=== PATIENT | female | born 1980 | race Hispanic/Latino ===

== ENCOUNTER 2019-08-18 00:12 | Inpatient (IN) | payer SELFPAY ==
[2019-08-18] MEDS ORDERED: SODIUM CHLORIDE 0.9% 1000 ML 1,000 ML ONE ×2 (01:05)
[2019-08-18] MEDS ORDERED: ACETAMINOPHEN 500 MG TAB ONE (01:06)
[2019-08-18] MEDS ORDERED: SODIUM CHLORIDE 0.9% 1000 ML IV SOLN IV ONE (01:07)
[2019-08-18] MEDS ORDERED: HYDROmorphone 1 MG/1 ML INJ IV ONE ×2 (01:07→04:12)
[2019-08-18] MEDS ORDERED: PIPERACIL/TAZOBACTA 4.5/NS 100 4.5 GM/100 ML VIAL IV ONE (01:11)
[2019-08-18 01:25] LABS: Hematocrit 35.6 % (30.3-42.9); Hemoglobin 12.3 gm/dl (10.1-14.3); Mean Corpuscular HGB Conc 35 % (30-34); Mean Corpuscular Volume 82 fl (79-97); Platelet Count 277 K/mm3 (140-440); Red Blood Count 4.36 M/mm3 (3.65-5.03); Red Cell Distribution Width 15.1 % (13.2-15.2)
[2019-08-18 01:29] LABS: Total Cells Counted 100
[2019-08-18 01:30] LABS: Band Neutrophils # (Manual) 0.3 K/mm3; Basophils % (Manual) 0 % (0.0-1.8); Eosinophils % (Manual) 0 % (0.0-4.3); Ovalocytes 1+; Platelet Estimate Consistent w Auto; Poikilocytosis 1+
[2019-08-18 01:45] LABS: Alanine Aminotransferase 13 units/L (7-56); Albumin 4.4 g/dL (3.9-5); BUN/Creatinine Ratio 18; Blood Urea Nitrogen 16 mg/dL (7-17); Hemolysis Index 3
--- NOTE | 2019-08-18 01:48 | XRay Report ---
CHEST 1 VIEW 08/18/2019 1:18 AM INDICATION / CLINICAL INFORMATION: fever. COMPARISON: 05/22/12 FINDINGS: SUPPORT DEVICES: None. HEART / MEDIASTINUM: No significant abnormality. LUNGS / PLEURA: No significant pulmonary or pleural abnormality. No pneumothorax. ADDITIONAL FINDINGS: No significant additional findings. IMPRESSION: 1. No acute findings. Signer Name: Anoop Cao MD Signed: 08/18/2019 2:43 AM Workstation Name: [id number]
[2019-08-18] MEDS ORDERED: PIPERACIL/TAZOBACTA 4.5/NS 100 4.5 GM/100 ML VIAL IV SCH (02:00)
--- NOTE | 2019-08-18 02:27 | Emergency Department Report ---
ED Abdominal Pain HPI - General Chief Complaint: Abdominal Pain Stated Complaint: ABD PAIN Source: patient Mode of arrival: Stretcher Limitations: No Limitations - History of Present Illness Initial Comments: Patient is a 39-year-old white female with a history of ulcerative colitis, anxiety and C. difficile who presents to the ED with complaint of acute onset persistent diffuse abdominal pain that is worse on the right flank for the last 2 months, nausea and vomiting and which got worse in the last 2 days. Patient states that she's not been able to void urine because she has not been able to eat anything due to persistent nausea and vomiting with the lack of appetite. Patient states that in the last 12 hours she also developed a headache, diffuse body aches and pains, intermittent chills and fever and has been taking [id number] Tylenol for the same with no relief. Patient denies low back pain, dysuria, urinary frequency and urgency, vaginal bleeding, vaginal discharge, diarrhea, chest pain, shortness of breath, syncope or seizures. MD Complaint: abdominal pain, other (nausea and vomiting;) -: Gradual, month(s) (2) Location: RUQ, R flank Radiation: none Migration to: no migration Severity: severe Severity scale (0 -10): 8 Quality: cramping, aching, sharp Consistency: intermittent Improves With: nothing Worsens With: nothing Associated Symptoms: denies other symptoms, nausea, vomiting, fever, chills, anorexia. denies: diarrhea, constipation, dysuria, hematemesis, hematochezia, melena, hematuria, syncope - Related Data LMP Date: 08/11/19 Allergies Allergy/AdvReac Type Severity Reaction Status Date / Time morphine Allergy Hives Verified 08/18/19 00:37 sulfamethoxazole Allergy Itching Verified 08/18/19 00:41 [From Bactrim] trimethoprim [From Bactrim] Allergy Itching Verified 08/18/19 00:41 ED Review of Systems ROS: Stated complaint: ABD PAIN Other details as noted in HPI Constitutional: chills, fever, malaise, weakness Eyes: denies: eye pain, eye discharge, vision change ENT: denies: ear pain, throat pain Respiratory: denies: cough, shortness of breath, wheezing Cardiovascular: denies: chest pain, palpitations Endocrine: no symptoms reported Gastrointestinal: abdominal pain, nausea, vomiting. denies: diarrhea Genitourinary: denies: urgency, dysuria, discharge Musculoskeletal: denies: back pain, joint swelling, arthralgia Skin: denies: rash, lesions Neurological: denies: headache, weakness, paresthesias Psychiatric: denies: anxiety, depression Hematological/Lymphatic: denies: easy bleeding, easy bruising ED Past Medical Hx - Past Medical History Previous Medical History?: Yes Hx Psychiatric Treatment: Yes (Anxiety) Additional medical history: Ulcerative Colitis. C-diff. Chronic Lymes Disease - Surgical History Past Surgical History?: Yes Hx Cholecystectomy: Yes - Social History Smoking Status: Never Smoker Substance Use Type: None ED Physical Exam - General Limitations: No Limitations General appearance: alert, in no apparent distress - Head Head exam: Present: atraumatic, normocephalic, normal inspection - Eye Eye exam: Present: normal appearance, PERRL, EOMI Pupils: Present: normal accommodation - ENT ENT exam: Present: normal exam, normal orophraynx, mucous membranes moist, TM's normal bilaterally, normal external ear exam - Neck Neck exam: Present: normal inspection, full ROM - Respiratory Respiratory exam: Present: normal lung sounds bilaterally. Absent: respiratory distress, wheezes, rales, rhonchi, chest wall tenderness, accessory muscle use, prolonged expiratory - Cardiovascular Cardiovascular Exam: Present: normal rhythm, tachycardia, normal heart sounds. Absent: systolic murmur, diastolic murmur, rubs, gallop - GI/Abdominal GI/Abdominal exam: Present: soft, tenderness (Right flank, RUQ area tenderness with guarding), guarding, normal bowel sounds. Absent: rebound, hyperactive bowel sounds, hypoactive bowel sounds, organomegaly - Extremities Exam Extremities exam: Present: normal inspection, full ROM, normal capillary refill - Back Exam Back exam: Present: normal inspection, full ROM. Absent: CVA tenderness (R), muscle spasm, paraspinal tenderness, vertebral tenderness - Neurological Exam Neurological exam: Present: alert, oriented X3, CN II-XII intact, normal gait, reflexes normal - Psychiatric Psychiatric exam: Present: normal affect, normal mood - Skin Skin exam: Present: warm, dry, intact, normal color. Absent: rash ED Course Vital Signs 08/18/19 08/18/19 08/18/19 00:21 01:50 EDT 01:24 EST Temperature 98.8 F 101 F H Pulse Rate 129 H 109 H Respiratory 18 22 20 Rate Blood Pressure 103/57 Blood Pressure 97/57 [Left] Blood Pressure [Right] O2 Sat by Pulse 99 98 Oximetry 08/18/19 08/18/19 01:48 EST 02:25 Temperature 100 F H Pulse Rate 107 H 94 H Respiratory 12 19 Rate Blood Pressure Blood Pressure 108/61 [Left] Blood Pressure 120/72 [Right] O2 Sat by Pulse 97 99 Oximetry - Reevaluation(s) Reevaluation #1: 08/18/19 02:34 This is a 39-year-old female who presented to the ED with persistent right flank pain, nausea and vomiting with fever and chills. In the ED, patient is alert and oriented 3 and is not in distress but appears ill. Patient is febrile, tachycardic in triage and appears generally weak. The code sepsis was called for the patient and more tests ordered including chest x-ray and abdomen pelvis CT scan with IV contrast. The patient was also treated for fever, nausea and vomiting, abdominal pain and also normal saline IV fluids per sepsis protocol. Patient's case was discussed with Dr. Chu the ED attending physician who agreed with the plan of care. Chest x-ray shows no acute cardiopulmonary abnormalities. Lab test results show leukocytosis of 17,000, hyperglycemia of 129 mg/dL and a Lactic acid level of 2.10. Abdomen pelvis CT scan with contrast shows mild ascending and transverse colitis. Patient case was discussed with the ED attending Physician Dr. Chu who agreed with plan to admit the patient. Patient case also discussed with the Hospitalist Physician invertebrate paleontologist Dr. Shaw who admitted the patient. 08/18/19 04:10 ED Medical Decision Making - Lab Data Result diagrams: 08/18/19 00:57 08/18/19 00:57 - Radiology Data Radiology results: report reviewed, image reviewed Chest x-ray shows no acute cardiopulmonary abnormalities or pneumonitis. Abdomen pelvis CT scan with contrast shows mild ascending and transverse colitis. - Medical Decision Making This is a 39-year-old female who presented to the ED with persistent right flank pain, nausea and vomiting with fever and chills. In the ED, patient is alert and oriented 3 and is not in distress but appears ill. Patient is febrile, tachycardic in triage and appears generally weak. The code sepsis was called for the patient and more tests ordered including chest x-ray and abdomen pelvis CT scan with IV contrast. The patient was also treated for fever, nausea and vomiting, abdominal pain and also normal saline IV fluids per sepsis protocol. Patient's case was discussed with Dr. Chu the ED attending physician who agreed with the plan of care. Chest x-ray shows no acute cardiopulmonary abnormalities. Lab test results show leukocytosis of 17,000, hyperglycemia of 129 mg/dL and a Lactic acid level of 2.10. Abdomen pelvis CT scan with contrast shows mild ascending and transverse colitis. Patient case was discussed with the ED attending Physician Dr. Chu who agreed with plan to admit the patient. Patient case also discussed with the Hospitalist Physician invertebrate paleontologist Dr. Shaw who admitted the patient. - Differential Diagnosis Abdominal pain; Colitis; UTI; Appendicitis; Pyelonephritis; Pneumonia Critical Care Time: Yes Critical care time in (mins) excluding proc time.: 45 Critical care attestation.: If time is entered above; I have spent that time in minutes in the direct care of this critically ill patient, excluding procedure time. Critical Care Time: 45 ED Disposition Clinical Impression: Acute colitis, Sepsis due to other etiology, Fever and chills Abdominal pain Qualifiers: Abdominal location: generalized Qualified Code(s): R10.84 - Generalized abdominal pain Disposition: DC-09 OP ADMIT IP TO THIS HOSP Is pt being admited?: Yes Does the pt Need Aspirin: Yes Condition: Stable Instructions: Abdominal Pain (ED) Referrals: LESLI ELLIS MD [Primary Care Provider] - 3-5 Days Time of Disposition: 02:43 Print Language: SUDANESE
[2019-08-18 02:44] LABS: Bilirubin,Urine NEG (Negative); Blood,Urine NEG (Negative); Color,Urine Yellow (Yellow); Mucus,Urine FEW /HPF; Protein,Urine <15 mg/dL mg/dL (Negative); Urobilinogen,Urine < 2.0 mg/dL (<2.0)
--- NOTE | 2019-08-18 03:59 | Cat Scan Report ---
CT ABDOMEN AND PELVIS WITH CONTRAST INDICATION / CLINICAL INFORMATION: MAIN: abdominal pain, NAUSEA, VOMITING, DIARRHEA. 100 ML OMNIPAQUE 300. TECHNIQUE: Axial CT images were obtained through the abdomen and pelvis after 100 mL Omnipaque [address] scans at this location are performed using CT dose reduction for ALARA by means of automated exposure control. COMPARISON: None available. FINDINGS: LOWER CHEST: No significant abnormality. LIVER: No significant abnormality. GALLBLADDER: Surgically absent. BILE DUCTS: No significant abnormality. PANCREAS: No significant abnormality. SPLEEN: No significant abnormality. ADRENALS: No significant abnormality. RIGHT KIDNEY and URETER: No significant abnormality. LEFT KIDNEY and URETER: No significant abnormality. STOMACH and SMALL BOWEL: No significant abnormality. COLON: Mild thickening and edema of the ascending and transverse colon characteristic of mild colitis . APPENDIX: No significant abnormality. PERITONEUM: No free fluid. No free air. No fluid collection. LYMPH NODES: No significant adenopathy. AORTA and ARTERIES: No significant abnormality. IVC and VEINS: No significant abnormality. URINARY BLADDER: No significant abnormality. REPRODUCTIVE ORGANS: No significant abnormality. ADDITIONAL FINDINGS: None. SKELETAL SYSTEM: Several small bone islands but no acute osseous abnormality. IMPRESSION: 1. Mild ascending and transverse colitis. No abscess or free air. Signer Name: Anoop Cao MD Signed: 08/18/2019 3:55 AM Workstation Name: [id number]
[2019-08-18] MEDS ORDERED: HYDROmorphone 1 MG/1 ML INJ ONE (04:10)
[2019-08-18] MEDS ORDERED: ONDANSETRON 4 MG/2 ML INJ ONE (04:11)
[2019-08-18] MEDS ORDERED: ONDANSETRON 4 MG/2 ML INJ IV ONE ×2 (04:13→05:07)
[2019-08-18] MEDS ORDERED: METOCLOPRAMIDE 10 MG/2 ML INJ ONE (05:14)
[2019-08-18] MEDS ORDERED: METOCLOPRAMIDE 10 MG/2 ML INJ IV ONE (05:14)
[2019-08-18] MEDS ORDERED: ONDANSETRON 4 MG/2 ML INJ IV PRN (06:00)
[2019-08-18] MEDS ORDERED: ACETAMINOPHEN 325 MG TAB PO PRN (06:00)
--- NOTE | 2019-08-18 07:32 | History and Physical Report ---
History of Present Illness Date of examination: 08/18/19 Date of admission: 08/18/19 06:47 Chief complaint: Abdominal pain. Nausea and vomiting. Fever History of present illness: Patient is a 39-year-old female with known history of hypothyroidism ,history of C. difficile in the past presenting to the emergency room today complaining of abdominal pain, associated nausea and vomiting fever. It has been ongoing for the past few days. She denies any diarrhea , no bright red blood per rectum, no headache or dizziness. Upon arrival in the emergency room she was quite tachycardic and also had a fever of about [address] abdomen was consistent with colitis. She had an elevated lactic acid of 2.2 and also a white count of 17. Past History Past Medical History: hypothyroidism, renal failure, other (History of C. difficile in the past) Past Surgical History: cholecystectomy, Other (History of kidney surgery in the past) Social history: no significant social history Family history: hypertension Medications and Allergies Allergies Allergy/AdvReac Type Severity Reaction Status Date / Time morphine Allergy Hives Verified 08/18/19 00:37 sulfamethoxazole Allergy Itching Verified 08/18/19 00:41 [From Bactrim] trimethoprim [From Bactrim] Allergy Itching Verified 08/18/19 00:41 Active Meds: Active Medications Acetaminophen (Tylenol) 650 mg PO Q4H PRN PRN Reason: Pain MILD(1-3)/Fever >100.5/CLARK Piperacillin Sod/Tazobactam Sod (Zosyn/Ns 4.5gm/100ml) 4.5 gm in 100 mls @ 200 mls/hr IV Q8H HUGO; Protocol Last Admin: 08/18/19 01:00 EDT Dose: 200 mls/hr Documented by: Sodium Chloride (Nacl 0.9% 1000 Ml) 1,000 mls @ 125 mls/hr IV DIRECT HUGO Levofloxacin/Dextrose (Levaquin 750mg/150ml) 750 mg in 150 mls @ 100 mls/hr IV Q24HR HUGO; Protocol Metronidazole (Flagyl 500 Mg/100 Ml) 500 mg in 100 mls @ 100 mls/hr IV Q8HR HUGO; Protocol Ondansetron HCl (Zofran) 4 mg IV Q8H PRN PRN Reason: Nausea And Vomiting Sodium Chloride (Sodium Chloride Flush Syringe 10 Ml) 10 ml IV BID HUGO Sodium Chloride (Sodium Chloride Flush Syringe 10 Ml) 10 ml IV PRN PRN PRN Reason: LINE FLUSH Review of Systems Constitutional: fever, chills, malaise Gastrointestinal: abdominal pain, nausea, vomiting Exam - Constitutional Vitals: Temp Pulse Resp BP Pulse Ox 98 F 105 H 20 99/67 100 08/18/19 05:23 08/18/19 05:23 08/18/19 05:23 08/18/19 05:23 08/18/19 05:23 General appearance: Present: mild distress - EENT Eyes: Present: PERRL, EOM intact ENT: clear oral mucosa - Neck Neck: Present: supple, normal ROM - Respiratory Respiratory: bilateral: CTA - Cardiovascular Rhythm: regular Heart Sounds: Present: S1 & S2 - Extremities Extremities: no ischemia, pulses intact Peripheral Pulses: within normal limits - Abdominal General gastrointestinal: Present: soft, tender, non-distended Localized gastrointestinal: tender: diffuse - Integumentary Integumentary: Present: clear, warm, dry - Musculoskeletal Musculoskeletal: strength equal bilaterally - Psychiatric Psychiatric: appropriate mood/affect, intact judgment & insight - Neurologic Neurologic: CNII-XII intact, moves all extremities Results - Labs CBC & Chem 7: 08/18/19 00:57 08/18/19 00:57 Labs: Abnormal lab results 08/18/19 08/18/19 08/18/19 Range/Units 00:57 00:57 01:18 EST WBC 17.0 H (4.5-11.0) K/mm3 MCHC 35 H (30-34) % Carbon Dioxide 19 L (22-30) mmol/L Glucose 129 H (65-100) mg/dL Lactic Acid 2.10 H* (0.7-2.0) mmol/L Assessment and Plan - Patient Problems (1) Acute colitis Current Visit: Yes Status: Acute Plan to address problem: Patient has been started on empiric IV antibiotics. She has been placed on IV Levaquin and Flagyl. She had his dose of Zosyn in the emergency room. She has a history of C. difficile in the past. (2) Sepsis due to other etiology Current Visit: Yes Status: Acute Plan to address problem: Sepsis probably secondary to the colitis. We will continue on IV fluid and also on empiric IV antibiotics
[2019-08-18] MEDS: metroNIDAZOLE/NS 500 MG/100 ML 500 MG/100 ML BAG IV SCH ×4 (10:39→22:34)
[2019-08-18] MEDS: HYDROmorphone 1 MG/1 ML INJ IV PRN ×3 (10:55→18:26)
[2019-08-18] MEDS ORDERED: SODIUM CHLORIDE 0.9% 1000 ML 1,000 ML IV SCH (11:00)
--- NOTE | 2019-08-18 11:57 | Event Note ---
Date: 08/18/19 Patient seen and examined. She reports diarrhea, 2 loose stool this am. She also reports hx of Lyme disease and since then has had generalized body pain although worse now with the diveriticulitis. Check stool for c.diff given hx obtain ID consult Adjust fluids and Pain control
[2019-08-18] MEDS: SODIUM CHLORIDE 0.9% 1000 ML 1,000 ML IV SCH ×2 (14:14→20:28)
--- NOTE | 2019-08-18 14:57 | Consultation ---
History of Present Illness - Reason for Consult Consult date: 08/18/19 c.difficile colitis, Lyme disease history Requesting physician: SP ALEXANDER - History of Present Illness The patient is a 39-year-old female with history of ulcerative colitis, anxiety, recently diagnosed with C. difficile colitis by [facility] and was placed on antibiotic. She came to the hospital emergency room on 08/18/2019 with complaints of lower abdominal pain as well as acute on chronic diarrhea for the last 2 months or so. She initially saw her PCP and was given Cipro + Flagyl and with persistent diarrhea, she then saw [facility] and was diagnosed with C.difficile. Due to persistent symptoms, she came to the hospital. Denies any blood in stools. Here, she also was noted to have a fever. Reports nausea, vomiting and ongoing diarrhea. Was empirically started on levofloxacin and Flagyl. Infectious diseases was consulted for antibiotic recommendations. Patient gives a history of Lyme disease that was apparently diagnosed by a group that specializes in treatment of Lyme disease. She was apparently told that she acquired Lyme disease in her 20s and has chronic Lyme. She has been treated in the past with about 2 months of doxycycline. She was also diagnosed with so- called "Mycoplasma pneumoniae infection". She reports diffuse bodyaches. Review of Systems: General: fever HEENT: no new visual disturbance Respiratory: No cough, sputum, hemoptysis or shortness of breath Cardiovascular: No chest pain, syncope Gastrointestinal: Nausea, vomiting, diarrhea + Genitourinary: No dysuria or hematuria Musculoskeletal: diffuse bodyaches. Neurologic: No headaches, seizures Hematologic: No easy bruising or bleeding Endocrine: No night sweats or acute weight loss Skin: negative for rash, jaundice Psychiatric: No suicidal or homicidal ideation Past History Past Medical History: hypothyroidism, renal failure, other (History of C. difficile in the past) Past Surgical History: cholecystectomy, Other (History of kidney surgery in the past) Social history: no significant social history Family history: hypertension Medications and Allergies Allergies Allergy/AdvReac Type Severity Reaction Status Date / Time morphine Allergy Hives Verified 08/18/19 00:37 sulfamethoxazole Allergy Itching Verified 08/18/19 00:41 [From Bactrim] trimethoprim [From Bactrim] Allergy Itching Verified 08/18/19 00:41 Home Medications Medication Instructions Recorded Confirmed Last Taken Type Adult Probiotic 2 cap PO DAILY 08/18/19 08/18/19 Unknown History Cytomel 5 mg PO DAILY 08/18/19 08/18/19 Unknown History Synthroid 0.75 mcg PO QDAY 08/18/19 08/18/19 Unknown History Vit B12/Pyridoxine/Thiamine 1 cap PO DAILY 08/18/19 08/18/19 Unknown History Active Meds: Active Medications Acetaminophen (Tylenol) 650 mg PO Q4H PRN PRN Reason: Pain MILD(1-3)/Fever >100.5/CLARK Last Admin: 08/18/19 08:40 Dose: 650 mg Documented by: Acetaminophen/Hydrocodone Bitart ([place] 7.5/325) 1 each PO Q6H PRN PRN Reason: Pain, Moderate (4-6) Hydromorphone HCl (Dilaudid) 0.5 mg IV Q3H PRN PRN Reason: Pain , Severe (7-10) Last Admin: 08/18/19 14:13 Dose: 0.5 mg Documented by: Sodium Chloride (Nacl 0.9% 1000 Ml) 1,000 mls @ 125 mls/hr IV DIRECT HUGO Last Admin: 08/18/19 14:14 Dose: 125 mls/hr Documented by: Levofloxacin/Dextrose (Levaquin 750mg/150ml) 750 mg in 150 mls @ 100 mls/hr IV Q24HR HUGO; Protocol Last Admin: 08/18/19 10:39 Dose: 100 mls/hr Documented by: Metronidazole (Flagyl 500 Mg/100 Ml) 500 mg in 100 mls @ 100 mls/hr IV Q8HR HUGO; Protocol Last Admin: 08/18/19 10:39 Dose: 100 mls/hr Documented by: Sodium Chloride (Nacl 0.9% 1000 Ml) 1,000 mls @ 0 mls/hr IV ONCE HUGO Stop: 08/19/19 11:01 Last Admin: 08/18/19 10:37 Dose: 999 mls/hr Documented by: Ondansetron HCl (Zofran) 4 mg IV Q4H PRN PRN Reason: Nausea Sodium Chloride (Sodium Chloride Flush Syringe 10 Ml) 10 ml IV BID HUGO Last Admin: 08/18/19 14:14 Dose: 10 ml Documented by: Sodium Chloride (Sodium Chloride Flush Syringe 10 Ml) 10 ml IV PRN PRN PRN Reason: LINE FLUSH Physical Examination - Physical Exam Narrative exam: Physical Exam: Constitutional: Alert, cooperative. No acute distress Head, Ears, Nose: Normocephalic, atraumatic. External ears, nose normal Eyes: Conjunctivae/corneas clear. No icterus. No ptosis. Neck: Supple, no meningeal signs Oral: dentition fair, no thrush Cardiovascular: S1, S2 normal. Respiratory: Good air entry, clear to auscultation bilaterally GI: diffuse abdominal tenderness, bowel sounds present Musculoskeletal: No pedal edema, no cyanosis. Skin: No rash or abscess Hem/Lymphatic: No palpable cervical or supraclavicular nodes. No lymphangitis Psych: Mood ok. Affect normal Neurological: Awake, alert, oriented. No gross abnormality - Constitutional Vitals: Vital Signs Temp Pulse Resp BP Pulse Ox 100.6 F H 108 H 16 85/40 95 08/18/19 11:43 08/18/19 11:43 08/18/19 11:43 08/18/19 11:43 08/18/19 11:43 Temperature -Last 24 Hours Temperature 100.6 F Temperature 97.6 F Temperature 98 F Temperature 100 F Temperature 101 F Temperature 98.8 F Results - Labs CBC & Chem 7: 08/18/19 00:57 08/18/19 00:57 Labs: Abnormal lab results 08/18/19 08/18/19 08/18/19 Range/Units 00:57 00:57 01:18 EST WBC 17.0 H (4.5-11.0) K/mm3 MCHC 35 H (30-34) % Carbon Dioxide 19 L (22-30) mmol/L Glucose 129 H (65-100) mg/dL Lactic Acid 2.10 H* (0.7-2.0) mmol/L - Imaging and Cardiology CT scan - abdomen: report reviewed, image reviewed (colitis of ascending and transverse colon) Assessment and Plan Cultures: 08/18/2019 blood culture: In progress A/P: 39-year-old female with history of ulcerative colitis, anxiety, recently diagnosed with C. difficile colitis by [facility]: 1) Acute Clostridium difficile colitis: Would consider this severe given evidence of colitis on CT as well as leukocytosis. 2) H/O IBD: follows with [facility]. 3) h/o Chronic lyme disease: apparently diagnosed by a group that specializes in treatment of Lyme disease. She was apparently told that she acquired Lyme disease in her 20s and has chronic Lyme. She has been treated in the past with about 2 months of doxycycline. She was also diagnosed with so-called "Mycoplasma pneumoniae infection". There is no role for antibiotics now even if she truly had Lyme disease and it could potentially worsen her C.difficile. Recs: Discussed with RN to ensure stool sample is sent STAT (and not wait for 3 stools) Discontinued levofloxacin (would worsen C.diff) Continue IV Flagyl Added PO vancomycin 125 mg 4 times a day Monitor leukocytosis, fever and diarrhea d/w Dr. Alexander. Uma Zacarias MD, FACP [facility] ([facility] C: [phone] O: [phone] F: [phone]
[2019-08-18] MEDS: ONDANSETRON 4 MG/2 ML INJ IV PRN ×2 (15:37→20:28)
[2019-08-18] MEDS: VANCOMYCIN 250 MG/10 ML ORAL LIQD PO SCH ×2 (15:37→19:51)
[2019-08-18] MEDS: HYDROcodone/ACETAMINOPHEN 7.5-325MG TAB PO PRN (20:28)
[2019-08-19] MEDS: HYDROmorphone 1 MG/1 ML INJ IV PRN ×5 (01:10→21:06)
[2019-08-19] MEDS: ONDANSETRON 4 MG/2 ML INJ IV PRN ×2 (01:10→10:02)
[2019-08-19] MEDS: VANCOMYCIN 250 MG/10 ML ORAL LIQD PO SCH ×6 (01:14→23:31)
[2019-08-19] MEDS ORDERED: METOCLOPRAMIDE 10 MG/2 ML INJ IV ONE (04:29)
[2019-08-19] MEDS: metroNIDAZOLE/NS 500 MG/100 ML 500 MG/100 ML BAG IV SCH ×3 (04:49→21:14)
[2019-08-19] MEDS: SODIUM CHLORIDE 0.9% 1000 ML 1,000 ML IV SCH ×2 (04:50→23:31)
[2019-08-19 07:53] LABS: Basophils % (Auto) 0.5 % (0.0-1.8); Eosinophils % (Auto) 0.5 % (0.0-4.3); Hematocrit 28.2 % (30.3-42.9); Hemoglobin 9.5 gm/dl (10.1-14.3); Lymphocytes # (Auto) 0.6 K/mm3 (1.2-5.4); Lymphocytes % (Auto) 6.2 % (13.4-35.0); Mean Corpuscular HGB Conc 34 % (30-34); Mean Corpuscular Volume 83 fl (79-97); Monocytes # (Auto) 0.8 K/mm3 (0.0-0.8); Monocytes % (Auto) 7.9 % (0.0-7.3); Platelet Count 188 K/mm3 (140-440); Red Blood Count 3.39 M/mm3 (3.65-5.03); Red Cell Distribution Width 15.3 % (13.2-15.2)
[2019-08-19 08:04] LABS: Partial Thromboplastin Time 33.4 Sec. (24.2-36.6)
[2019-08-19 08:09] LABS: INR 1.27 (0.87-1.13)
[2019-08-19 08:19] LABS: BUN/Creatinine Ratio 14; Blood Urea Nitrogen 10 mg/dL (7-17); Calcium 7.2 mg/dL (8.4-10.2); Hemolysis Index 2
[2019-08-19] MEDS ORDERED: SODIUM BICARB 8.4% 50 MEQ/50 ML SYRINGE IV ONE (08:57)
[2019-08-19] MEDS: HYDROcodone/ACETAMINOPHEN 7.5-325MG TAB PO PRN (12:09)
[2019-08-19] MEDS: PROCHLORPERAZINE EDISYLATE 10 MG/2 ML VIAL IV PRN ×2 (14:04→21:11)
--- NOTE | 2019-08-19 15:22 | Progress Note ---
Assessment and Plan Cultures: 08/18/2019 blood culture: In progress A/P: 39-year-old female with history of ulcerative colitis, anxiety, recently diagnosed with C. difficile colitis by [facility]: 1) Acute Clostridium difficile colitis: Would consider this severe given evidence of colitis on CT as well as leukocytosis. 2) H/O IBD: follows with [facility]. 3) h/o Chronic lyme disease: apparently diagnosed by a group that specializes in treatment of Lyme disease. She was apparently told that she acquired Lyme disease in her 20s and has chronic Lyme. She has been treated in the past with about 2 months of doxycycline. She was also diagnosed with so-called "Mycoplasm a pneumoniae infection". There is no role for antibiotics now even if she truly had Lyme disease and it could potentially worsen her C.difficile. Recs: Continue IV Flagyl Continue PO vancomycin 125 mg 4 times a day Monitor leukocytosis, fever and diarrhea May Cruz MD [facility] M: [phone] O: [phone] F: [phone] Subjective Date of service: 08/19/19 Interval history: Improved leukocytosis. Improved volume of diarrhea, ongoing vomiting. Stools still liquid. Objective - Exam Narrative Exam: Constitutional: Alert, cooperative. No acute distress Head, Ears, Nose: Normocephalic, atraumatic. External ears, nose normal Eyes: Conjunctivae/corneas clear. No icterus. No ptosis. Neck: Supple, no meningeal signs Oral: dentition fair, no thrush Cardiovascular: S1, S2 normal. Respiratory: Good air entry, clear to auscultation bilaterally GI: Soft, non-tender; bowel sounds normal. No peritoneal signs. Musculoskeletal: No pedal edema, no cyanosis. Skin: No rash or abscess Hem/Lymphatic: No palpable cervical or supraclavicular nodes. No lymphangitis Psych: Mood ok. Affect normal Neurological: Awake, alert, oriented. No gross abnormality - Constitutional Vitals: Vital Signs Temp Pulse Resp BP Pulse Ox 98.8 F 86 18 108/68 96 08/19/19 05:54 08/19/19 05:54 08/19/19 05:54 08/19/19 05:54 08/19/19 05:54 Temperature -Last 24 Hours Temperature 98.8 F Temperature 97.9 F Temperature 100.1 F - Labs CBC & Chem 7: 08/19/19 06:32 08/19/19 06:32 Labs: Abnormal lab results 08/19/19 08/19/19 08/19/19 Range/Units 06:32 06:32 06:32 RBC 3.39 L (3.65-5.03) M/mm3 Hgb 9.5 L (10.1-14.3) gm/dl Hct 28.2 L D (30.3-42.9) % RDW 15.3 H (13.2-15.2) % Lymph % (Auto) 6.2 L (13.4-35.0) % [place] % (Auto) 7.9 H (0.0-7.3) % Lymph # 0.6 L (1.2-5.4) K/mm3 Seg Neutrophils % 84.9 H (40.0-70.0) % Seg Neutrophils # 8.2 H (1.8-7.7) K/mm3 PT 15.7 H (12.2-14.9) Sec. INR 1.27 H (0.87-1.13) Potassium 3.4 L (3.6-5.0) mmol/L Chloride 111.1 H (98-107) mmol/L Carbon Dioxide 17 L (22-30) mmol/L Calcium 7.2 L D (8.4-10.2) mg/dL
--- NOTE | 2019-08-19 17:11 | Progress Note ---
Assessment and Plan Assessment and plan: Patient is a 39-year-old female with known history of hypothyroidism ,history of C. difficile in the past presenting to the emergency room today complaining of abdominal pain, associated nausea and vomiting fever. It has been ongoing for the past few days. She denies any diarrhea , no bright red blood per rectum, no headache or dizziness. Upon arrival in the emergency room she was quite tachycardic and also had a fever of about [address] abdomen was consistent with colitis. She had an elevated lactic acid of 2.2 and also a white count of 17. Acute colitis Sepsis due to other etiology IBS Hx of Chronic Lyme disease hx of C,Diff- suspect C.diff colitis Plan Continue supportive care Pain and antiemetics control Await stool studies Abx per ID-vancomycin 125 mg 4 times a day AND Flagyl dvt/gi prophy Ok to discharge in 24-48 hrs once tolerating diet Plan discussed with family History Interval history: Patient seen and examined remains with generelized abodminal pain, lethargic, states pain 10/10. states current pain control not effective. Also requesting compazine as zofran not working also Hospitalist Physical - Constitutional Vitals: Temp Pulse Resp BP Pulse Ox 98.8 F 86 18 108/68 96 08/19/19 05:54 08/19/19 05:54 08/19/19 05:54 08/19/19 05:54 08/19/19 05:54 General appearance: Present: mild distress, other (lathergic) - EENT Eyes: Present: PERRL, EOM intact ENT: hearing intact, clear oral mucosa - Neck Neck: Present: supple, normal ROM - Respiratory Respiratory effort: normal Respiratory: bilateral: diminished - Cardiovascular Rhythm: regular Heart Sounds: Present: S1 & S2. Absent: systolic murmur, diastolic murmur - Extremities Extremities: no ischemia, pulses intact, pulses symmetrical, No edema, normal temperature, normal color, Full ROM Peripheral Pulses: within normal limits - Abdominal General gastrointestinal: soft, tender, non-distended, normal bowel sounds - Integumentary Integumentary: Present: clear, warm, dry - Psychiatric Psychiatric: appropriate mood/affect, intact judgment & insight, cooperative - Neurologic Neurologic: CNII-XII intact, moves all extremities - Allied Health Allied health notes reviewed: nursing Results - Labs CBC & Chem 7: 08/19/19 06:32 08/19/19 06:32 Labs: Laboratory Last Values WBC 9.6 K/mm3 (4.5-11.0) 08/19/19 06:32 RBC 3.39 M/mm3 (3.65-5.03) L 08/19/19 06:32 Hgb 9.5 gm/dl (10.1-14.3) L 08/19/19 06:32 Hct 28.2 % (30.3-42.9) L D 08/19/19 06:32 MCV 83 fl (79-97) 08/19/19 06:32 MCH 28 pg (28-32) 08/19/19 06:32 MCHC 34 % (30-34) 08/19/19 06:32 RDW 15.3 % (13.2-15.2) H 08/19/19 06:32 Plt Count 188 K/mm3 (140-440) 08/19/19 06:32 Lymph % (Auto) 6.2 % (13.4-35.0) L 08/19/19 06:32 [place] % (Auto) 7.9 % (0.0-7.3) H 08/19/19 06:32 Eos % (Auto) 0.5 % (0.0-4.3) 08/19/19 06:32 Baso % (Auto) 0.5 % (0.0-1.8) 08/19/19 06:32 Lymph # 0.6 K/mm3 (1.2-5.4) L 08/19/19 06:32 Brooke # 0.8 K/mm3 (0.0-0.8) 08/19/19 06:32 Eos # 0.0 K/mm3 (0.0-0.4) 08/19/19 06:32 Baso # 0.0 K/mm3 (0.0-0.1) 08/19/19 06:32 Seg Neutrophils % 84.9 % (40.0-70.0) H 08/19/19 06:32 Seg Neutrophils # 8.2 K/mm3 (1.8-7.7) H 08/19/19 06:32 PT 15.7 Sec. (12.2-14.9) H 08/19/19 06:32 INR 1.27 (0.87-1.13) H 08/19/19 06:32 APTT 33.4 Sec. (24.2-36.6) 08/19/19 06:32 Sodium 140 mmol/L (137-145) 08/19/19 06:32 Potassium 3.4 mmol/L (3.6-5.0) L 08/19/19 06:32 Chloride 111.1 mmol/L (98-107) H 08/19/19 06:32 Carbon Dioxide 17 mmol/L (22-30) L 08/19/19 06:32 Anion Gap 15 mmol/L 08/19/19 06:32 BUN 10 mg/dL (7-17) 08/19/19 06:32 Creatinine 0.7 mg/dL (0.7-1.2) 08/19/19 06:32 Estimated GFR > 60 ml/min 08/19/19 06:32 BUN/Creatinine Ratio 14 % 08/19/19 06:32 Glucose 97 mg/dL (65-100) 08/19/19 06:32 Lactic Acid 1.60 mmol/L (0.7-2.0) 08/18/19 04:47 Calcium 7.2 mg/dL (8.4-10.2) L D 08/19/19 06:32 Total Bilirubin 0.80 mg/dL (0.1-1.2) 08/18/19 00:57 AST 19 units/L (5-40) 08/18/19 00:57 ALT 13 units/L (7-56) 08/18/19 00:57 Alkaline Phosphatase 89 units/L (35-129) 08/18/19 00:57 Troponin T < 0.010 ng/mL (0.00-0.029) 08/18/19 01:18 EST Total Protein 7.2 g/dL (6.3-8.2) 08/18/19 00:57 Albumin 4.4 g/dL (3.9-5) 08/18/19 00:57 Albumin/Globulin Ratio 1.6 % 08/18/19 00:57 Lipase 32 units/L (13-60) 08/18/19 00:57 HCG, Qual Negative (Negative) 08/18/19 00:57 Urine Color Yellow (Yellow) 08/18/19 02:30 Urine Turbidity Clear (Clear) 08/18/19 02:30 Urine pH 7.0 (5.0-7.0) 08/18/19 02:30 Ur Specific [place] 1.028 (1.003-1.030) 08/18/19 02:30 Urine Protein <15 mg/dl mg/dL (Negative) 08/18/19 02:30 Urine Glucose (UA) Neg mg/dL (Negative) 08/18/19 02:30 Urine Ketones 20 mg/dL (Negative) 08/18/19 02:30 Urine Blood Neg (Negative) 08/18/19 02:30 Urine Nitrite Neg (Negative) 08/18/19 02:30 Urine Bilirubin Neg (Negative) 08/18/19 02:30 Urine Urobilinogen < 2.0 mg/dL (<2.0) 08/18/19 02:30 Ur Leukocyte Esterase Neg (Negative) 08/18/19 02:30 Urine WBC (Auto) 1.0 /HPF (0.0-6.0) 08/18/19 02:30 Urine RBC (Auto) 2.0 /HPF (0.0-6.0) 08/18/19 02:30 U Epithel Cells (Auto) 5.0 /HPF (0-13.0) 08/18/19 02:30 Urine Mucus Few /HPF 08/18/19 02:30 Active Medications - Current Medications Current Medications: Generic Name Dose Route Start Last Admin Trade Name Freq PRN Reason Stop Dose Admin Acetaminophen 650 mg 08/18/19 06:00 08/18/19 08:40 Tylenol PO 650 mg Q4H PRN Administration Pain MILD(1-3)/Fever >100.5/CLARK Hydromorphone HCl 1 mg 08/19/19 13:14 08/19/19 14:04 Dilaudid IV 1 mg Q3H PRN Administration Pain , Severe (7-10) Sodium Chloride 1,000 mls @ 125 mls/hr 08/18/19 06:00 08/19/19 04:50 Nacl 0.9% 1000 Ml IV 125 mls/hr DIRECT HUGO Administration Metronidazole 500 mg in 100 mls @ 100 mls/hr 08/18/19 07:00 08/19/19 04:49 Flagyl 500 Mg/100 Ml IV 100 mls/hr Q8HR HUGO Administration Protocol Oxycodone/Acetaminophen 1 tab 08/19/19 13:13 Percocet 5/325 PO Q6H PRN Pain, Moderate (4-6) Prochlorperazine Edisylate 5 mg 08/19/19 13:13 08/19/19 14:04 Compazine IV 5 mg Q6H PRN Administration Nausea And Vomiting Sodium Chloride 10 ml 08/18/19 10:00 08/19/19 10:04 Sodium Chloride Flush Syringe 10 Ml IV 10 ml BID HUGO Administration Sodium Chloride 10 ml 08/18/19 06:00 08/19/19 04:51 Sodium Chloride Flush Syringe 10 Ml IV 10 ml PRN PRN Administration LINE FLUSH Vancomycin HCl 125 mg 08/18/19 15:00 08/19/19 06:52 Vancomycin Po PO Not Given Q6HR HUGO
[2019-08-19] MEDS: oxyCODONE /ACETAMINOPHEN 5-325MG TAB PO PRN ×2 (17:15→23:36)
[2019-08-20] MEDS: HYDROmorphone 1 MG/1 ML INJ IV PRN ×3 (04:20→18:08)
[2019-08-20 05:14] LABS: Hematocrit 28.6 % (30.3-42.9); Hemoglobin 9.7 gm/dl (10.1-14.3); Mean Corpuscular HGB Conc 34 % (30-34); Mean Corpuscular Volume 81 fl (79-97); Platelet Count 207 K/mm3 (140-440); Red Blood Count 3.52 M/mm3 (3.65-5.03)
[2019-08-20 05:31] LABS: BUN/Creatinine Ratio 13; Blood Urea Nitrogen 8 mg/dL (7-17); Calcium 7.4 mg/dL (8.4-10.2); Hemolysis Index 5
[2019-08-20] MEDS: VANCOMYCIN 250 MG/10 ML ORAL LIQD PO SCH ×3 (06:44→18:07)
[2019-08-20] MEDS: metroNIDAZOLE/NS 500 MG/100 ML 500 MG/100 ML BAG IV SCH ×5 (06:45→22:23)
[2019-08-20] MEDS: oxyCODONE /ACETAMINOPHEN 5-325MG TAB PO PRN ×3 (07:53→22:23)
[2019-08-20] MEDS: PROCHLORPERAZINE EDISYLATE 10 MG/2 ML VIAL IV PRN ×3 (07:53→19:00)
[2019-08-20] MEDS: POTASSIUM CHLORIDE 20 MEQ PACKET PO SCH ×2 (07:54→13:56)
[2019-08-20] MEDS: SODIUM CHLORIDE 0.9% 1000 ML 1,000 ML IV SCH ×2 (10:05→19:07)
--- NOTE | 2019-08-20 11:07 | Progress Note ---
Assessment and Plan Assessment and plan: Patient is a 39-year-old female with known history of hypothyroidism ,history of C. difficile in the past presenting to the emergency room today complaining of abdominal pain, associated nausea and vomiting fever. It has been ongoing for the past few days. no bright red blood per rectum, no headache or dizziness. Upon arrival in the emergency room she was quite tachycardic and also had a fever of about [address] abdomen was consistent with colitis. She had an elevated lactic acid of 2.2 and also a white count of 17. Acute colitis Sepsis due to other etiology IBS Hx of Chronic Lyme disease hx of C,Diff- suspect C.diff colitis -,Cdiff PCR ordered, still not sent yet. I discussed with Nurse. Plan Continue supportive care Pain and antiemetics control Await stool studies Abx per ID-vancomycin 125 mg 4 times a day AND Flagyl dvt/gi prophy Plan discussed with patient and at bedside History Interval history: Abdominal pain Nausea Hospitalist Physical - Physical exam Narrative exam: Gen: Not in acute distress, lying in bed,obese HEENT: Normocephalic, atraumatic Neck: supple, no JVD Heart: S1 and S2 reg, no murmurs, rubs or gallop Lungs: Clear to auscultation, no rhonchi, no wheeze Abd: soft, mild tender, no rebound tenderness, non distended, normal BS, Ext: No edema, no clubbing, no cyanosis Neuro: Awake, alert, oriented X 3, no focal neurological signs - Constitutional Vitals: Temp Pulse Resp BP Pulse Ox 98.5 F 68 17 111/66 97 08/19/19 23:26 08/19/19 23:26 08/20/19 04:50 08/19/19 23:26 08/19/19 23:26 General appearance: Present: mild distress, other (lathergic) Results - Labs CBC & Chem 7: 08/20/19 04:17 08/20/19 04:17 Labs: Laboratory Last Values WBC 7.5 K/mm3 (4.5-11.0) 08/20/19 04:17 RBC 3.52 M/mm3 (3.65-5.03) L 08/20/19 04:17 Hgb 9.7 gm/dl (10.1-14.3) L 08/20/19 04:17 Hct 28.6 % (30.3-42.9) L 08/20/19 04:17 MCV 81 fl (79-97) 08/20/19 04:17 MCH 28 pg (28-32) 08/20/19 04:17 MCHC 34 % (30-34) 08/20/19 04:17 RDW 15.0 % (13.2-15.2) 08/20/19 04:17 Plt Count 207 K/mm3 (140-440) 08/20/19 04:17 Lymph % (Auto) 6.2 % (13.4-35.0) L 08/19/19 06:32 [place] % (Auto) 7.9 % (0.0-7.3) H 08/19/19 06:32 Eos % (Auto) 0.5 % (0.0-4.3) 08/19/19 06:32 Baso % (Auto) 0.5 % (0.0-1.8) 08/19/19 06:32 Lymph # 0.6 K/mm3 (1.2-5.4) L 08/19/19 06:32 [place] # 0.8 K/mm3 (0.0-0.8) 08/19/19 06:32 Eos # 0.0 K/mm3 (0.0-0.4) 08/19/19 06:32 Baso # 0.0 K/mm3 (0.0-0.1) 08/19/19 06:32 Seg Neutrophils % 84.9 % (40.0-70.0) H 08/19/19 06:32 Seg Neutrophils # 8.2 K/mm3 (1.8-7.7) H 08/19/19 06:32 PT 15.7 Sec. (12.2-14.9) H 08/19/19 06:32 INR 1.27 (0.87-1.13) H 08/19/19 06:32 APTT 33.4 Sec. (24.2-36.6) 08/19/19 06:32 Sodium 140 mmol/L (137-145) 08/20/19 04:17 Potassium 3.0 mmol/L (3.6-5.0) L 08/20/19 04:17 Chloride 109.1 mmol/L (98-107) H 08/20/19 04:17 Carbon Dioxide 19 mmol/L (22-30) L 08/20/19 04:17 Anion Gap 15 mmol/L 08/20/19 04:17 BUN 8 mg/dL (7-17) 08/20/19 04:17 Creatinine 0.6 mg/dL (0.7-1.2) L 08/20/19 04:17 Estimated GFR > 60 ml/min 08/20/19 04:17 BUN/Creatinine Ratio 13 % 08/20/19 04:17 Glucose 82 mg/dL (65-100) 08/20/19 04:17 Lactic Acid 1.60 mmol/L (0.7-2.0) 08/18/19 04:47 Calcium 7.4 mg/dL (8.4-10.2) L 08/20/19 04:17 Total Bilirubin 0.80 mg/dL (0.1-1.2) 08/18/19 00:57 AST 19 units/L (5-40) 08/18/19 00:57 ALT 13 units/L (7-56) 08/18/19 00:57 Alkaline Phosphatase 89 units/L (35-129) 08/18/19 00:57 Troponin T < 0.010 ng/mL (0.00-0.029) 08/18/19 01:18 EST Total Protein 7.2 g/dL (6.3-8.2) 08/18/19 00:57 Albumin 4.4 g/dL (3.9-5) 08/18/19 00:57 Albumin/Globulin Ratio 1.6 % 08/18/19 00:57 Lipase 32 units/L (13-60) 08/18/19 00:57 HCG, Qual Negative (Negative) 08/18/19 00:57 Urine Color Yellow (Yellow) 08/18/19 02:30 Urine Turbidity Clear (Clear) 08/18/19 02:30 Urine pH 7.0 (5.0-7.0) 08/18/19 02:30 Ur Specific [place] 1.028 (1.003-1.030) 08/18/19 02:30 Urine Protein <15 mg/dl mg/dL (Negative) 08/18/19 02:30 Urine Glucose (UA) Neg mg/dL (Negative) 08/18/19 02:30 Urine Ketones 20 mg/dL (Negative) 08/18/19 02:30 Urine Blood Neg (Negative) 08/18/19 02:30 Urine Nitrite Neg (Negative) 08/18/19 02:30 Urine Bilirubin Neg (Negative) 08/18/19 02:30 Urine Urobilinogen < 2.0 mg/dL (<2.0) 08/18/19 02:30 Ur Leukocyte Esterase Neg (Negative) 08/18/19 02:30 Urine WBC (Auto) 1.0 /HPF (0.0-6.0) 08/18/19 02:30 Urine RBC (Auto) 2.0 /HPF (0.0-6.0) 08/18/19 02:30 U Epithel Cells (Auto) 5.0 /HPF (0-13.0) 08/18/19 02:30 Urine Mucus Few /HPF 08/18/19 02:30 Active Medications - Current Medications Current Medications: Generic Name Dose Route Start Last Admin Trade Name Freq PRN Reason Stop Dose Admin Acetaminophen 650 mg 08/18/19 06:00 08/18/19 08:40 Tylenol PO 650 mg Q4H PRN Administration Pain MILD(1-3)/Fever >100.5/CLARK Hydromorphone HCl 1 mg 08/19/19 13:14 08/20/19 04:20 Dilaudid IV 1 mg Q3H PRN Administration Pain , Severe (7-10) Sodium Chloride 1,000 mls @ 125 mls/hr 08/18/19 06:00 08/20/19 10:05 Nacl 0.9% 1000 Ml IV 125 mls/hr DIRECT HUGO Administration Metronidazole 500 mg in 100 mls @ 100 mls/hr 08/18/19 07:00 08/20/19 06:47 Flagyl 500 Mg/100 Ml IV 100 mls/hr Q8HR HUGO Administration Protocol Oxycodone/Acetaminophen 1 tab 08/19/19 13:13 08/20/19 07:53 Percocet 5/325 PO 1 tab Q6H PRN Administration Pain, Moderate (4-6) Potassium Chloride 40 meq 08/20/19 08:00 08/20/19 07:54 Potassium Chloride PO 08/20/19 14:01 40 meq Q6H HUGO Administration Prochlorperazine Edisylate 5 mg 08/19/19 13:13 08/20/19 07:53 Compazine IV 5 mg Q6H PRN Administration Nausea And Vomiting Sodium Chloride 10 ml 08/18/19 10:00 08/20/19 10:07 Sodium Chloride Flush Syringe 10 Ml IV 10 ml BID HUGO Administration Sodium Chloride 10 ml 08/18/19 06:00 08/19/19 04:51 Sodium Chloride Flush Syringe 10 Ml IV 10 ml PRN PRN Administration LINE FLUSH Vancomycin HCl 125 mg 08/18/19 15:00 08/20/19 06:44 Vancomycin Po PO 125 mg Q6HR HUGO Administration
[2019-08-20] MEDS ORDERED: PYRIDOXINE PO SCH (11:30)
[2019-08-20] MEDS ORDERED: [UNRECOGNIZED DRUG - OTHER] PO SCH (11:30)
[2019-08-20] MEDS ORDERED: VIT B12 PO SCH (11:30)
[2019-08-20] MEDS ORDERED: LEVOTHYROXINE PO SCH (11:30)
[2019-08-20] MEDS ORDERED: CYTOMEL PO SCH (11:30)
[2019-08-20] MEDS ORDERED: THIAMINE PO SCH (11:30)
[2019-08-20] MEDS: LEVOTHYROXINE 75 MCG TAB PO SCH (13:44)
[2019-08-20] MEDS: B COMPLEX W/VITAMIN C TAB PO SCH (13:52)
[2019-08-20] MEDS: LACTOBACILLUS RHAMNOSUS GG 1 EACH CAP PO SCH (13:53)
--- NOTE | 2019-08-20 14:17 | Progress Note ---
Assessment and Plan Cultures: 08/18/2019 blood culture: In progress A/P: 39-year-old female with history of ulcerative colitis, anxiety, recently diagnosed with C. difficile colitis by [facility]: 1) Acute Clostridium difficile colitis: Would consider this severe given evidence of colitis on CT as well as leukocytosis. 2) H/O IBD: follows with [facility]. 3) h/o Chronic lyme disease: apparently diagnosed by a group that specializes in treatment of Lyme disease. She was apparently told that she acquired Lyme disease in her 20s and has chronic Lyme. She has been treated in the past with about 2 months of doxycycline. She was also diagnosed with so-called "Mycoplasm a pneumoniae infection". There is no role for antibiotics now even if she truly had Lyme disease and it could potentially worsen her C.difficile. Recs: Continue IV Flagyl - ok to stop when diarrhea/vomiting improved Continue PO vancomycin 125 mg 4 times a day Monitor leukocytosis, fever and diarrhea Expect a 10 day course of therapy. May Cruz MD [facility] M: [phone] O: [phone] F: [phone] Subjective Date of service: 08/20/19 Interval history: Improved leukocytosis. Improved volume of diarrhea, ongoing vomiting. Stools still liquid. Objective - Exam Narrative Exam: Constitutional: Alert, cooperative. No acute distress Head, Ears, Nose: Normocephalic, atraumatic. External ears, nose normal Eyes: Conjunctivae/corneas clear. No icterus. No ptosis. Neck: Supple, no meningeal signs Oral: dentition fair, no thrush Cardiovascular: S1, S2 normal. Respiratory: Good air entry, clear to auscultation bilaterally GI: Soft, non-tender; bowel sounds normal. No peritoneal signs. Musculoskeletal: No pedal edema, no cyanosis. Skin: No rash or abscess Hem/Lymphatic: No palpable cervical or supraclavicular nodes. No lymphangitis Psych: Mood ok. Affect normal Neurological: Awake, alert, oriented. No gross abnormality - Constitutional Vitals: Vital Signs Temp Pulse Resp BP Pulse Ox 98.5 F 68 17 111/66 97 08/19/19 23:26 08/19/19 23:26 08/20/19 04:50 08/19/19 23:26 08/19/19 23:26 Temperature -Last 24 Hours Temperature 98.5 F Temperature 98.1 F - Labs CBC & Chem 7: 08/20/19 04:17 08/20/19 04:17 Labs: Abnormal lab results 08/20/19 08/20/19 Range/Units 04:17 04:17 RBC 3.52 L (3.65-5.03) M/mm3 Hgb 9.7 L (10.1-14.3) gm/dl Hct 28.6 L (30.3-42.9) % Potassium 3.0 L (3.6-5.0) mmol/L Chloride 109.1 H (98-107) mmol/L Carbon Dioxide 19 L (22-30) mmol/L Creatinine 0.6 L (0.7-1.2) mg/dL Calcium 7.4 L (8.4-10.2) mg/dL
[2019-08-21] MEDS: VANCOMYCIN 250 MG/10 ML ORAL LIQD PO SCH ×4 (00:34→17:54)
[2019-08-21] MEDS: PROCHLORPERAZINE EDISYLATE 10 MG/2 ML VIAL IV PRN ×4 (01:09→17:54)
[2019-08-21] MEDS: HYDROmorphone 1 MG/1 ML INJ IV PRN ×7 (01:09→22:20)
[2019-08-21] MEDS: metroNIDAZOLE/NS 500 MG/100 ML 500 MG/100 ML BAG IV SCH ×3 (05:19→22:20)
[2019-08-21] MEDS: LEVOTHYROXINE 75 MCG TAB PO SCH (05:19)
[2019-08-21 06:34] LABS: Hematocrit 29.3 % (30.3-42.9); Hemoglobin 9.9 gm/dl (10.1-14.3); Mean Corpuscular HGB Conc 34 % (30-34); Mean Corpuscular Volume 81 fl (79-97); Platelet Count 228 K/mm3 (140-440); Red Cell Distribution Width 15.1 % (13.2-15.2)
[2019-08-21 07:01] LABS: BUN/Creatinine Ratio 5; Blood Urea Nitrogen 3 mg/dL (7-17); Calcium 7.5 mg/dL (8.4-10.2); Hemolysis Index 1
[2019-08-21] MEDS ORDERED: POTASSIUM CHLORIDE 20 MEQ PACKET PO SCH (09:00)
[2019-08-21] MEDS: LACTOBACILLUS RHAMNOSUS GG 1 EACH CAP PO SCH (09:03)
[2019-08-21] MEDS: B COMPLEX W/VITAMIN C TAB PO SCH (09:03)
[2019-08-21] MEDS: POTASSIUM CHLORIDE ER 20 MEQ TAB PO SCH ×2 (13:04→17:55)
[2019-08-21] MEDS: SODIUM CHLORIDE 0.9% 1000 ML 1,000 ML IV SCH (15:28)
--- NOTE | 2019-08-21 15:36 | Progress Note ---
Assessment and Plan Cultures: 08/18/2019 blood culture: In progress A/P: 39-year-old female with history of ulcerative colitis, anxiety, recently diagnosed with C. difficile colitis by [place] [facility]: 1) Acute Clostridium difficile colitis: Would consider this severe given evidence of colitis on CT as well as leukocytosis. 2) H/O IBD: follows with [facility]. 3) h/o Chronic lyme disease: apparently diagnosed by a group that specializes in treatment of Lyme disease. She was apparently told that she acquired Lyme disease in her 20s and has chronic Lyme. She has been treated in the past with about 2 months of doxycycline. She was also diagnosed with so-called "Mycoplasm a pneumoniae infection". There is no role for antibiotics now even if she truly had Lyme disease and it could potentially worsen her C.difficile. Recs: Continue IV Flagyl - ok to stop when diarrhea/vomiting improved Continue PO vancomycin 125 mg 4 times a day Monitor leukocytosis, fever and diarrhea Expect a 10 day course of therapy. Ok to discharge from ID perspective. Would discharge with PO vanco alone to complete the 10 days. May Cruz MD [facility] M: [phone] O: [phone] F: [phone] Subjective Date of service: 08/21/19 Interval history: Improved leukocytosis. Improved volume of diarrhea, ongoing vomiting. Stools still liquid. Objective - Exam Narrative Exam: Constitutional: Alert, cooperative. No acute distress Head, Ears, Nose: Normocephalic, atraumatic. External ears, nose normal Eyes: Conjunctivae/corneas clear. No icterus. No ptosis. Neck: Supple, no meningeal signs Oral: dentition fair, no thrush Cardiovascular: S1, S2 normal. Respiratory: Good air entry, clear to auscultation bilaterally GI: Soft, non-tender; bowel sounds normal. No peritoneal signs. Musculoskeletal: No pedal edema, no cyanosis. Skin: No rash or abscess Hem/Lymphatic: No palpable cervical or supraclavicular nodes. No lymphangitis Psych: Mood ok. Affect normal Neurological: Awake, alert, oriented. No gross abnormality - Constitutional Vitals: Vital Signs Temp Pulse Resp BP Pulse Ox 98.3 F 67 16 108/55 96 08/21/19 12:29 08/21/19 12:29 08/21/19 12:29 08/21/19 12:29 08/21/19 12:29 Temperature -Last 24 Hours Temperature 98.3 F Temperature 98.8 F Temperature 98.2 F Temperature 98.3 F - Labs CBC & Chem 7: 08/21/19 05:44 08/21/19 05:44 Labs: Abnormal lab results 08/21/19 08/21/19 Range/Units 05:44 05:44 RBC 3.60 L (3.65-5.03) M/mm3 Hgb 9.9 L (10.1-14.3) gm/dl Hct 29.3 L (30.3-42.9) % Potassium 3.1 L (3.6-5.0) mmol/L Carbon Dioxide 19 L (22-30) mmol/L BUN 3 L (7-17) mg/dL Creatinine 0.6 L (0.7-1.2) mg/dL Calcium 7.5 L (8.4-10.2) mg/dL
--- NOTE | 2019-08-21 15:38 | Progress Note ---
Assessment and Plan Assessment and plan: Patient is a 39-year-old female with known history of hypothyroidism ,history of C. difficile in the past presenting to the emergency room today complaining of abdominal pain, associated nausea and vomiting fever. It has been ongoing for the past few days. no bright red blood per rectum, no headache or dizziness. Upon arrival in the emergency room she was quite tachycardic and also had a fever of about [address] abdomen was consistent with colitis. She had an elevated lactic acid of 2.2 and also a white count of 17. Acute colitis Sepsis IBS Hx of Chronic Lyme disease hx of C,Diff- leukocytosis,resolved Plan Continue supportive care Pain and antiemetics control Await stool studies Abx per ID-vancomycin 125 mg 4 times a day AND Flagyl dvt/gi prophy Plan discussed with patient and at bedside C diff PCR negative. I discussed with ID Physician Hopefully dc home tomorrow. History Interval history: Still c/o Abdominal pain Nausea Hospitalist Physical - Physical exam Narrative exam: Gen: Not in acute distress, lying in bed,obese HEENT: Normocephalic, atraumatic Neck: supple, no JVD Heart: S1 and S2 reg, no murmurs, rubs or gallop Lungs: Clear to auscultation, no rhonchi, no wheeze Abd: soft, mild tender, no rebound tenderness, non distended, normal BS, Ext: No edema, no clubbing, no cyanosis Neuro: Awake, alert, oriented X 3, no focal neurological signs - Constitutional Vitals: Temp Pulse Resp BP Pulse Ox 98.3 F 67 16 108/55 96 08/21/19 12:29 08/21/19 12:29 08/21/19 12:29 08/21/19 12:29 08/21/19 12:29 General appearance: Present: other (lathergic) Results - Labs CBC & Chem 7: 08/21/19 05:44 08/21/19 05:44 Labs: Laboratory Last Values WBC 5.8 K/mm3 (4.5-11.0) 08/21/19 05:44 RBC 3.60 M/mm3 (3.65-5.03) L 08/21/19 05:44 Hgb 9.9 gm/dl (10.1-14.3) L 08/21/19 05:44 Hct 29.3 % (30.3-42.9) L 08/21/19 05:44 MCV 81 fl (79-97) 08/21/19 05:44 MCH 28 pg (28-32) 08/21/19 05:44 MCHC 34 % (30-34) 08/21/19 05:44 RDW 15.1 % (13.2-15.2) 08/21/19 05:44 Plt Count 228 K/mm3 (140-440) 08/21/19 05:44 Lymph % (Auto) 6.2 % (13.4-35.0) L 08/19/19 06:32 Bowie % (Auto) 7.9 % (0.0-7.3) H 08/19/19 06:32 Eos % (Auto) 0.5 % (0.0-4.3) 08/19/19 06:32 Baso % (Auto) 0.5 % (0.0-1.8) 08/19/19 06:32 Lymph # 0.6 K/mm3 (1.2-5.4) L 08/19/19 06:32 Bowie # 0.8 K/mm3 (0.0-0.8) 08/19/19 06:32 Eos # 0.0 K/mm3 (0.0-0.4) 08/19/19 06:32 Baso # 0.0 K/mm3 (0.0-0.1) 08/19/19 06:32 Seg Neutrophils % 84.9 % (40.0-70.0) H 08/19/19 06:32 Seg Neutrophils # 8.2 K/mm3 (1.8-7.7) H 08/19/19 06:32 PT 15.7 Sec. (12.2-14.9) H 08/19/19 06:32 INR 1.27 (0.87-1.13) H 08/19/19 06:32 APTT 33.4 Sec. (24.2-36.6) 08/19/19 06:32 Sodium 142 mmol/L (137-145) 08/21/19 05:44 Potassium 3.1 mmol/L (3.6-5.0) L 08/21/19 05:44 Chloride 106.4 mmol/L (98-107) 08/21/19 05:44 Carbon Dioxide 19 mmol/L (22-30) L 08/21/19 05:44 Anion Gap 20 mmol/L 08/21/19 05:44 BUN 3 mg/dL (7-17) L 08/21/19 05:44 Creatinine 0.6 mg/dL (0.7-1.2) L 08/21/19 05:44 Estimated GFR > 60 ml/min 08/21/19 05:44 BUN/Creatinine Ratio 5 % 08/21/19 05:44 Glucose 78 mg/dL (65-100) 08/21/19 05:44 Lactic Acid 1.60 mmol/L (0.7-2.0) 08/18/19 04:47 Calcium 7.5 mg/dL (8.4-10.2) L 08/21/19 05:44 Total Bilirubin 0.80 mg/dL (0.1-1.2) 08/18/19 00:57 AST 19 units/L (5-40) 08/18/19 00:57 ALT 13 units/L (7-56) 08/18/19 00:57 Alkaline Phosphatase 89 units/L (35-129) 08/18/19 00:57 Troponin T < 0.010 ng/mL (0.00-0.029) 08/18/19 01:18 EST Total Protein 7.2 g/dL (6.3-8.2) 08/18/19 00:57 Albumin 4.4 g/dL (3.9-5) 08/18/19 00:57 Albumin/Globulin Ratio 1.6 % 08/18/19 00:57 Lipase 32 units/L (13-60) 08/18/19 00:57 HCG, Qual Negative (Negative) 08/18/19 00:57 Urine Color Yellow (Yellow) 08/18/19 02:30 Urine Turbidity Clear (Clear) 08/18/19 02:30 Urine pH 7.0 (5.0-7.0) 08/18/19 02:30 Ur Specific Roll 1.028 (1.003-1.030) 08/18/19 02:30 Urine Protein <15 mg/dl mg/dL (Negative) 08/18/19 02:30 Urine Glucose (UA) Neg mg/dL (Negative) 08/18/19 02:30 Urine Ketones 20 mg/dL (Negative) 08/18/19 02:30 Urine Blood Neg (Negative) 08/18/19 02:30 Urine Nitrite Neg (Negative) 08/18/19 02:30 Urine Bilirubin Neg (Negative) 08/18/19 02:30 Urine Urobilinogen < 2.0 mg/dL (<2.0) 08/18/19 02:30 Ur Leukocyte Esterase Neg (Negative) 08/18/19 02:30 Urine WBC (Auto) 1.0 /HPF (0.0-6.0) 08/18/19 02:30 Urine RBC (Auto) 2.0 /HPF (0.0-6.0) 08/18/19 02:30 U Epithel Cells (Auto) 5.0 /HPF (0-13.0) 08/18/19 02:30 Urine Mucus Few /HPF 08/18/19 02:30 Active Medications - Current Medications Current Medications: Generic Name Dose Route Start Last Admin Trade Name Freq PRN Reason Stop Dose Admin Acetaminophen 650 mg 08/18/19 06:00 08/18/19 08:40 Tylenol PO 650 mg Q4H PRN Administration Pain MILD(1-3)/Fever >100.5/CLARK Hydromorphone HCl 1 mg 08/19/19 13:14 08/21/19 15:23 Dilaudid IV 1 mg Q3H PRN Administration Pain , Severe (7-10) Sodium Chloride 1,000 mls @ 125 mls/hr 08/18/19 06:00 08/21/19 15:28 Nacl 0.9% 1000 Ml IV 125 mls/hr DIRECT HUGO Administration Metronidazole 500 mg in 100 mls @ 100 mls/hr 08/18/19 07:00 08/21/19 13:04 Flagyl 500 Mg/100 Ml IV 100 mls/hr Q8HR HUGO Administration Protocol Lactobacillus Rhamnosus 2 each 08/20/19 12:00 08/21/19 09:03 Culturelle PO 2 each DAILY HUGO Administration Levothyroxine Sodium 75 mcg 08/20/19 14:00 08/21/19 05:19 Synthroid PO 75 mcg DAILY@0600 HUGO Administration Miscellaneous Medication 5 mg 08/20/19 11:30 Cytomel PO DAILY HUGO Oxycodone/Acetaminophen 1 tab 08/19/19 13:13 08/20/19 22:23 Percocet 5/325 PO 1 tab Q6H PRN Administration Pain, Moderate (4-6) Potassium Chloride 40 meq 08/21/19 13:00 08/21/19 13:04 K-Dur PO 08/21/19 17:01 40 meq Q4H HUGO Administration Prochlorperazine Edisylate 5 mg 08/19/19 13:13 08/21/19 11:59 Compazine IV 5 mg Q6H PRN Administration Nausea And Vomiting Sodium Chloride 10 ml 08/18/19 10:00 08/21/19 09:06 Sodium Chloride Flush Syringe 10 Ml IV 10 ml BID HUGO Administration Sodium Chloride 10 ml 08/18/19 06:00 08/19/19 04:51 Sodium Chloride Flush Syringe 10 Ml IV 10 ml PRN PRN Administration LINE FLUSH Vancomycin HCl 125 mg 08/18/19 15:00 08/21/19 12:01 Vancomycin Po PO 08/28/19 06:01 125 mg Q6HR HUGO Administration Vitamin B Complex/Vitamin C 1 each 08/20/19 12:00 08/21/19 09:03 Allbee With C PO 1 each QDAY HUGO Administration
[2019-08-22] MEDS: PROCHLORPERAZINE EDISYLATE 10 MG/2 ML VIAL IV PRN ×3 (00:26→15:58)
[2019-08-22] MEDS: VANCOMYCIN 250 MG/10 ML ORAL LIQD PO SCH ×4 (00:26→13:25)
[2019-08-22] MEDS: HYDROmorphone 1 MG/1 ML INJ IV PRN ×2 (01:22→09:43)
[2019-08-22] MEDS: LEVOTHYROXINE 75 MCG TAB PO SCH (05:50)
[2019-08-22] MEDS: metroNIDAZOLE/NS 500 MG/100 ML 500 MG/100 ML BAG IV SCH ×2 (05:51→06:06)
[2019-08-22] MEDS: oxyCODONE /ACETAMINOPHEN 5-325MG TAB PO PRN ×2 (05:59→12:31)
[2019-08-22] MEDS ORDERED: FLUCONAZOLE 100 MG TAB PO STA (09:10)
[2019-08-22] MEDS: SODIUM CHLORIDE 0.9% 1000 ML 1,000 ML IV SCH (09:44)
[2019-08-22] MEDS: POTASSIUM CHLORIDE ER 20 MEQ TAB PO SCH ×2 (09:50→16:03)
[2019-08-22] MEDS: B COMPLEX W/VITAMIN C TAB PO SCH (09:51)
[2019-08-22] MEDS: LACTOBACILLUS RHAMNOSUS GG 1 EACH CAP PO SCH (09:51)
[2019-08-22] MEDS ORDERED: ENOXAPARIN 40 MG/0.4 ML INJ SUB-Q SCH (10:00)
--- NOTE | 2019-08-22 11:06 | Progress Note ---
Assessment and Plan Cultures: 08/18/2019 blood culture: In progress A/P: 39-year-old female with history of ulcerative colitis, anxiety, recently diagnosed with C. difficile colitis by [facility]: 1) Colitis: C diff PCR negative. Possibly related to history of UC vs other infectious cause 2) H/O IBD: follows with [facility]. 3) h/o Chronic lyme disease: apparently diagnosed by a group that specializes in treatment of Lyme disease. She was apparently told that she acquired Lyme disease in her 20s and has chronic Lyme. She has been treated in the past with about 2 months of doxycycline. She was also diagnosed with so-called "Mycoplasma pneumoniae infection". There is no role for antibiotics now even if she truly had Lyme disease and it could potentially worsen her C.difficile. Recs: Continue IV Flagyl; discharge on PO Flagyl to complete 7 total days of therapy. Stop PO vancomycin Monitor leukocytosis, fever and diarrhea Ok to discharge from ID perspective. Would discharge to complete 7 days of Flagyl and follow up wit GI. Ok to discontinue isolation May Cruz MD [facility] M: [phone] O: [phone] F: [phone] Subjective Date of service: 08/22/19 Interval history: Improved leukocytosis. Improved volume of diarrhea, ongoing vomiting. Ongoing abdominal pain. Objective - Exam Narrative Exam: Constitutional: Alert, cooperative. No acute distress Head, Ears, Nose: Normocephalic, atraumatic. External ears, nose normal Eyes: Conjunctivae/corneas clear. No icterus. No ptosis. Neck: Supple, no meningeal signs Oral: dentition fair, no thrush Cardiovascular: S1, S2 normal. Respiratory: Good air entry, clear to auscultation bilaterally GI: Soft, non-tender; bowel sounds normal. No peritoneal signs. Musculoskeletal: No pedal edema, no cyanosis. Skin: No rash or abscess Hem/Lymphatic: No palpable cervical or supraclavicular nodes. No lymphangitis Psych: Mood ok. Affect normal Neurological: Awake, alert, oriented. No gross abnormality - Constitutional Vitals: Vital Signs Temp Pulse Resp BP Pulse Ox 97.0 F L 66 17 107/64 96 08/22/19 06:53 08/22/19 07:10 08/22/19 06:59 08/22/19 07:10 08/22/19 06:53 Temperature -Last 24 Hours Temperature 97.0 F Temperature 98.1 F Temperature 98.2 F Temperature 98.3 F - Labs CBC & Chem 7: 08/21/19 05:44 08/22/19 06:54 Labs: Abnormal lab results 08/22/19 Range/Units 06:54 Potassium 3.2 L (3.6-5.0) mmol/L
--- NOTE | 2019-08-22 15:48 | Gastroenterology Consultation ---
<ZONIA RENTERIA - Last Filed: 08/22/19 15:59> History of Present Illness - Reason for Consult Consult date: 08/22/19 diarrhea, colitis Requesting physician: ELI KUMAR - History of Present Illness Patient is a 39 y/o female with PMH of hypothyroidism, anxiety, Lyme disease, chronic anemia, mycoplasma infection, and recent C-diff infection who presented to ED on 08/18/19 with c/o abdominal pain with N/V/D and fever. Upon admission, a bd CT showed mild ascending and transverse colitis to which she was admitted and has been treated per ID with antibiotics. GI has been consulted for persistent symptoms of diarrhea and nausea. Patient is previously known to our service. 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 She was also taking Excedrin frequently at that time, and was started on PPI with recommendation for an EGD to which she declined due to cost. Has not been compliant with taking PPI at home. States she previously was told by PCP that she may have ulcerative colitis due to previous episode of colitis, but has never underwent a colonoscopy for further evaluation. This afternoon, patient was resting in bed w/o acute distress. Reports some continued loose stool but now improved compared to initial onset and mild nausea but no vomiting. Tolerating small amounts of PO. Denies fever, CP, SOB, signs of bleeding, or constipation. Past History Past Medical History: hypothyroidism, renal failure, other (History of C. difficile in the past) Past Surgical History: cholecystectomy, Other (History of kidney surgery in the past) Social history: no significant social history Family history: hypertension Medications and Allergies Allergies Allergy/AdvReac Type Severity Reaction Status Date / Time morphine Allergy Hives Verified 08/18/19 00:37 sulfamethoxazole Allergy Itching Verified 08/18/19 00:41 [From Bactrim] trimethoprim [From Bactrim] Allergy Itching Verified 08/18/19 00:41 Home Medications Medication Instructions Recorded Confirmed Last Taken Type Adult Probiotic 2 cap PO DAILY 08/18/19 08/18/19 Unknown History Cytomel 5 mg PO DAILY 08/18/19 08/18/19 Unknown History Synthroid 0.75 mcg PO QDAY 08/18/19 08/18/19 Unknown History Vit B12/Pyridoxine/Thiamine 1 cap PO DAILY 08/18/19 08/18/19 Unknown History HYDROcodone/APAP 5-325 [[place] 1 each PO Q6HR PRN #12 tablet 08/22/19 Unknown Rx 5/325] Omeprazole 20 mg PO DAILY #30 capsule. 08/22/19 Unknown Rx Prochlorperazine [Compazine] 10 mg PO Q8HR PRN #20 tablet 08/22/19 Unknown Rx metroNIDAZOLE [Flagyl] 500 mg PO Q8H 4 Days #12 tab 08/22/19 Unknown Rx Active Meds: Active Medications Acetaminophen (Tylenol) 650 mg PO Q4H PRN PRN Reason: Pain MILD(1-3)/Fever >100.5/CLARK Last Admin: 08/18/19 08:40 Dose: 650 mg Documented by: Enoxaparin Sodium (Enoxaparin) 40 mg SUB-Q DAILY [facility] Last Admin: 08/22/19 10:03 Dose: 40 mg Documented by: Hydromorphone HCl (Dilaudid) 1 mg IV Q3H PRN PRN Reason: Pain , Severe (7-10) Last Admin: 08/22/19 09:43 Dose: 1 mg Documented by: Sodium Chloride (Nacl 0.9% 1000 Ml) 1,000 mls @ 125 mls/hr IV DIRECT HUGO Last Admin: 08/22/19 09:44 Dose: 125 mls/hr Documented by: Metronidazole (Flagyl 500 Mg/100 Ml) 500 mg in 100 mls @ 100 mls/hr IV Q8HR [facility]; Protocol Last Admin: 08/22/19 06:06 Dose: Not Given Documented by: Lactobacillus Rhamnosus (Culturelle) 2 each PO DAILY [facility] Last Admin: 08/22/19 09:51 Dose: 2 each Documented by: Levothyroxine Sodium (Synthroid) 75 mcg PO DAILY@0600 [facility] Last Admin: 08/22/19 05:50 Dose: 75 mcg Documented by: Miscellaneous Medication (Cytomel) 5 mg PO DAILY [facility] Oxycodone/Acetaminophen (Percocet 5/325) 1 tab PO Q6H PRN PRN Reason: Pain, Moderate (4-6) Last Admin: 08/22/19 12:31 Dose: 1 tab Documented by: Potassium Chloride (K-Dur) 40 meq PO Q6H [facility] Stop: 08/22/19 20:01 Last Admin: 08/22/19 09:50 Dose: 40 meq Documented by: Prochlorperazine Edisylate (Compazine) 5 mg IV Q6H PRN PRN Reason: Nausea And Vomiting Last Admin: 08/22/19 05:50 Dose: 5 mg Documented by: Sodium Chloride (Sodium Chloride Flush Syringe 10 Ml) 10 ml IV BID [facility] Last Admin: 08/22/19 09:44 Dose: 10 ml Documented by: Sodium Chloride (Sodium Chloride Flush Syringe 10 Ml) 10 ml IV PRN PRN PRN Reason: LINE FLUSH Last Admin: 08/19/19 04:51 Dose: 10 ml Documented by: Vancomycin HCl (Vancomycin Po) 125 mg PO Q6HR [facility] Stop: 08/28/19 06:01 Last Admin: 08/22/19 13:25 Dose: Not Given Documented by: Vitamin B Complex/Vitamin C (Allbee With C) 1 each PO QDAY [facility] Last Admin: 08/22/19 09:51 Dose: 1 each Documented by: medications reviewed/updated as required Review of Systems - Review of Systems Gastrointestinal: abdominal pain (epigastric), nausea, diarrhea Exam - Constitutional Vital Signs: Temp Pulse Resp BP Pulse Ox 99.2 F 78 16 124/78 97 08/22/19 12:29 08/22/19 12:29 08/22/19 12:29 08/22/19 12:29 08/22/19 12:29 General appearance: no acute distress - EENT Eyes: PERRL, EOM intact ENT: hearing intact - Respiratory Respiratory effort: normal Respiratory: bilateral: CTA - Cardiovascular Rhythm: regular - Gastrointestinal General gastrointestinal: Present: soft, non-tender, non-distended, normal bowel sounds - Integumentary Integumentary: Present: warm, dry - Neurologic Neurological: alert and oriented x3 - Labs CBC & Chem 7: 08/21/19 05:44 08/22/19 06:54 Lab Results: Laboratory Results - last 24 hr 08/18/19 08/22/19 08/22/19 Unknown 06:54 07:53 Potassium 3.2 L Magnesium 1.70 C. difficile Tox (PCR) Negative Assessment and Plan 1.colitis (pt reports possible hx of UC told to her by PCP due to previous episode of colitis; no prior colonoscopy or dx of IBD) 2.recent C-diff infection 3.chronic loose stools (s/p CCY also likely contributing) 4.anemia -afebrile -WBC WNL -H/H 9.9/29.3-trending up; no active signs of bleeding (H/H WNL on admission0 -C-diff PCR 08/18/19 negative -abd CT showed mild ascending and transverse colitis -currently on flagyl per ID recommendations x total of 7 days; vanco now d/c -recommend patient complete abx therapy and f/u in clinic as outpatient for further management (likely will need colonoscopy in ~4-6 weeks once acute process has resolved to r/o IBD) 5.epigastric discomfort 6.nausea -etiology-possibly antibiotic induced vs PUD (previous heavy NSAID use) vs other -currently tolerating PO w/o vomiting -start on daily PPI -avoid NSAIDs -will consider EGD as outpatient if symptoms persist -clinically, patient is stable with fever and leukocytosis now resolved. -continue supportive care -patient okay to be d/c per GI standpoint on medications as recommended above with f/u in clinic in 2-3 weeks (plan of care discussed with patient with understanding voiced and office card/information given) -will sign off, please call if needed <LESLI SANTA - Last Filed: 08/22/19 22:40> Exam - Constitutional Vital Signs: Temp Pulse Resp BP Pulse Ox 98.2 F 68 16 92/57 96 08/22/19 17:07 08/22/19 17:07 08/22/19 17:07 08/22/19 17:07 08/22/19 17:07 - Labs CBC & Chem 7: 08/21/19 05:44 08/22/19 06:54 Lab Results: Laboratory Results - last 24 hr 08/22/19 08/22/19 06:54 07:53 Potassium 3.2 L Magnesium 1.70 Assessment and Plan Patient seen and examined. I have reviewed the advanced practitioner's evaluation, assessment, and plan, and agree with them. I note the following additions: patient with chronic symptoms which are within acceptable limits for discharge with supportive care; provided her with clinic info and our assistance program (she lacks insurance, we provide financial assistance). Also recommended that she trial the specific carbohydrate diet - Patient Problems (1) Abdominal pain Status: Acute Qualifiers: Abdominal location: generalized Qualified Code(s): R10.84 - Generalized abdominal pain (2) Acute colitis Status: Acute
[2019-08-22] MEDS ORDERED: PANTOPRAZOLE 40 MG TAB PO SCH (16:00)
--- NOTE | 2019-08-22 16:01 | Discharge Summary ---
Providers - Providers Date of Admission: 08/18/19 06:47 Date of discharge: 08/22/19 Attending physician: ELI KUMAR 08/18/19 10:22 Consult to Physician [CONS] Routine Comment: Consulting Provider: MARSHAL HANEY Physician Instructions: Reason For Exam: colitis, hx of Lyme disease and c.diff 08/22/19 14:36 Consult to Physician [CONS] Routine Comment: Consulting Provider: VENKAT MAY Physician Instructions: Reason For Exam: diarrhea, ulcerative colitis history Primary care physician: LESLI ELLIS Hospitalization Condition: Fair Hospital course: Patient is a 39-year-old female with known history of hypothyroidism ,history of C. difficile in the past presenting to the emergency room complaining of abdominal pain, nausea, vomiting and fever for few days. Upon arrival in the emergency room she was quite tachycardic and also had a fever of about [address] abdomen was consistent with colitis. She had an elevated lactic acid of 2.2 and also a white count of 17. She was admitted, evaluated by ID Physician, started on antibiotics. C diff came back negative, so was dscharged homre. She was evaluated by GI prior to discharge. Acute colitis Sepsis Hx of Chronic Lyme disease hx of C,Diff- leukocytosis,resolved Plan Continue supportive care Pain and antiemetics control Abx per ID-vancomycin 125 mg 4 times a day AND Flagyl given as inpatient Plan discussed with patient and at bedside C diff PCR negative. I discussed with ID Physician Total time spent on discharge, 33 mins Disposition: - TO HOME OR SELFCARE - Discharge Diagnoses (1) Sepsis Status: Acute (2) Acute colitis Status: Acute (3) Fever and chills Status: Acute Core Measure Documentation - Palliative Care Palliative Care/ Comfort Measures: Not Applicable - Core Measures Any of the following diagnoses?: none Exam - Constitutional Vitals: Temp Pulse Resp BP Pulse Ox 99.2 F 78 16 124/78 97 08/22/19 12:29 08/22/19 12:29 08/22/19 12:29 08/22/19 12:29 08/22/19 12:29 Plan Activity: no restrictions Diet: low fat, low cholesterol, low salt Plan of Treatment: 1.Follow up with PCP in 1 week. 2.Follow up with with Dr. Johnson [facility] in 2-3 weeks. Follow up with: LESLI ELLIS MD [Primary Care Provider] - 3-5 Days Prescriptions: Prochlorperazine [Compazine] 10 mg PO Q8HR PRN #20 tablet PRN Reason: nausea or vomiting metroNIDAZOLE [Flagyl] 500 mg PO Q8H 4 Days #12 tab HYDROcodone/APAP 5-325 [[place] 5/325] 1 each PO Q6HR PRN #12 tablet PRN Reason: Pain Omeprazole 20 mg PO DAILY #30 capsule.
[2019-08-22 17:15] VITALS: BP 92/57
== END 2019-08-22 17:50 | disposition home or self-care (01) | DRG 872 ==
LOC: ED 00:12 → 3A 06:47
PROVIDERS: ADMIT Internal Medicine Geriatric Medicine; ATTEND Internal Medicine
DX: A41.9 Sepsis, unspecified organism (principal); A04.72 Enterocolitis due to Clostridium difficile, not specified as recurrent; A69.20 Lyme disease, unspecified; E03.9 Hypothyroidism, unspecified; D64.9 Anemia, unspecified; F41.9 Anxiety disorder, unspecified; K58.9 Irritable bowel syndrome, unspecified; Z90.49 Acquired absence of other specified parts of digestive tract; Z82.49 Family history of ischemic heart disease and other diseases of the circulatory system; Z88.5 Allergy status to narcotic agent; Z88.2 Allergy status to sulfonamides; Z79.899 Other long term (current) drug therapy
CPT/HCPCS: 36415; 71045; 74177; 80048; 80053; 81001; 82140; 83690; 83735; 84132; 84484; 84703; 85007; 85025; 85027; 85610; 85730; 87040; 87086; 87493; 96361; 96365; 96367; 96375; G0378; J0780; J1170; J1650; J1956; J2405; J2543; J2765; J3370; J7030; Q9967